=== PATIENT | male | born 1985 | race Caucasian/White ===

== ENCOUNTER 2017-06-03 16:04 | Emergency (ER) | payer OTHER ==
[~2017-06-03] VITALS: Ht 185.4 cm; Wt 75.7 kg
[2017-06-03] MEDS ORDERED: NAPROSYN500 MG PO (16:30)
[2017-06-03] MEDS ORDERED: FLEXERIL10 MG PO (16:30)
[2017-06-03 16:48] VITALS: BP 133/79
== END 2017-06-03 16:49 | disposition home or self-care (01) ==
LOC: EME 16:04
DX: S39.012A Strain of muscle, fascia and tendon of lower back, initial encounter (principal); X50.1XXA Overexertion from prolonged static or awkward postures, initial encounter; E11.9 Type 2 diabetes mellitus without complications; Z85.858 Personal history of malignant neoplasm of other endocrine glands; Z92.21 Personal history of antineoplastic chemotherapy
CPT/HCPCS: 99281; 99284; J1885